=== PATIENT | female | born 1940 | race Caucasian/White ===

== ENCOUNTER 2021-02-07 14:33 | Inpatient (IN) | payer MEDICARE, MEDICAID ==
[~2021-02-07] VITALS: Ht 167.6 cm; Wt 71.2 kg
[~2021-02-07 14:33] MED LIST: ASPI-986 PO; ATOR10TA; ATOR10TA69 PO; CARB28DR; DIGO250T79 PO; LISI10TA26 PO; MONT10TA21 PO; POTA-9 PO; RIVA20TA PO
[2021-02-07] MEDS ORDERED: METHYLPREDNISOLONE SOD SUCC 125 MG/2 ML VIAL IV STA (15:00)
[2021-02-07 15:57] LABS: BASOPHILS % 0.6 % (0.0-2.0); EOSINOPHILS % 5.7 % (0.0-5.0); HEMATOCRIT. 38.3 % (36.0-48.0); HEMOGLOBIN. 12.8 g/dL (12.0-16.0); LYMPHOCYTES % 24.8 % (20.0-50.0); MEAN CORPUSCULAR HEMOGLOBIN 31.6 pg (28.0-32.0); MEAN CORPUSCULAR VOLUME 94.4 fL (81.0-99.0); MEAN PLATELET VOLUME 8.9 fl (7.4-10.4); MONOCYTES % 10.4 % (2.0-8.0); NEUTROPHILS % 58.5 % (40.0-76.0); PLATELET 124 x1000/uL (130-400); RED BLOOD CELL COUNT 4.06 mill/uL (4.2-5.4); RED CELL DISTRIBUTION WIDTH 13.9 % (11.6-14.6)
[2021-02-07 16:03] LABS: CHLORIDE 105 mEq/L (98-107)
[2021-02-07] MEDS ORDERED: FUROSEMIDE 40MG/4ML VIAL IVP NR (17:30)
[2021-02-07] MEDS ORDERED: CLONIDINE 0.1MG TABLET PO PRN (21:00)
[2021-02-07] MEDS: SPIRONOLACTONE 25MG TABLET PO SCH (21:00)
[2021-02-07] MEDS: FUROSEMIDE 40MG/4ML VIAL IVP SCH (21:00)
[2021-02-07] MEDS ORDERED: ACETAMINOPHEN 325MG TABLET PO PRN ×2 (21:00)
[2021-02-07] MEDS ORDERED: IPRATROPIUM/ALBUTEROL 0.5-3(2.5)MG/3ML NEB NEB PRN (21:00)
[2021-02-07] MEDS ORDERED: NITROGLYCERIN 0.4MG TABLET SL SL PRN (21:00)
[2021-02-07] MEDS ORDERED: KETOROLAC 15MG/ML VIAL IV PRN (21:00)
[2021-02-07] MEDS ORDERED: MAGNESIUM/ALUMINUM HYDROXIDE/SIMETHICONE 30ML UDC PO PRN (21:00)
[2021-02-07] MEDS ORDERED: ONDANSETRON HCL 4MG/2ML INJ IV PRN (21:00)
[2021-02-07] MEDS ORDERED: ZOLPIDEM TARTRATE 5MG TABLET PO PRN (21:00)
[2021-02-07] MEDS ORDERED: DOCUSATE SODIUM 100MG CAPSULE PO PRN (21:00)
[2021-02-07] MEDS ORDERED: GUAIFENESIN 200MG/10ML SUGAR FREE UDC PO PRN (21:00)
[2021-02-07] MEDS ORDERED: DIGOXIN 500MCG/2ML AMP IV NR (21:30)
[2021-02-07] MEDS ORDERED: TRAMADOL 50MG TABLET PO PRN (21:30)
[2021-02-07 21:49] LABS: DIGOXIN 0.4 ng/mL (0.9-2.0)
[2021-02-07 22:02] LABS: FERRITIN 103 ng/mL (10-291)
[2021-02-07 22:13] LABS: VITAMIN B12 SERUM 370 pg/mL (211-911)
[2021-02-07 22:26] LABS: FOLIC ACID (FOLATE) SERUM > 20.00 ng/mL (>5.38)
[2021-02-07 22:52] LABS: CREATINE KINASE 47 IU/L (26-192)
[2021-02-07 22:53] LABS: CREATINE KINASE MB FRACTION < 1.0 ng/mL (0.5-3.6)
[2021-02-08] MEDS: ASCORBIC ACID 500 MG TABLET PO SCH ×3 (01:21→22:34)
[2021-02-08] MEDS: FAMOTIDINE 20MG TABLET PO SCH ×3 (01:21→22:34)
[2021-02-08 05:02] LABS: HEMATOCRIT. 39.2 % (36.0-48.0); HEMOGLOBIN. 13.4 g/dL (12.0-16.0); MEAN CORPUSCULAR HEMOGLOBIN 31.7 pg (28.0-32.0); MEAN CORPUSCULAR VOLUME 92.9 fL (81.0-99.0); MEAN PLATELET VOLUME 9.3 fl (7.4-10.4); PLATELET 128 x1000/uL (130-400); RED BLOOD CELL COUNT 4.22 mill/uL (4.2-5.4)
[2021-02-08 05:09] LABS: CHLORIDE 100 mEq/L (98-107)
[2021-02-08 05:17] LABS: PHOSPHORUS 2.8 mg/dL (2.5-4.9)
[2021-02-08 05:19] LABS: CREATINE KINASE 51 IU/L (26-192)
[2021-02-08 05:22] LABS: CREATINE KINASE MB FRACTION < 1.0 ng/mL (0.5-3.6)
[2021-02-08 11:06] VITALS: BP 116/63
[2021-02-08 12:00] VITALS: BP 109/68
[2021-02-08] MEDS: SPIRONOLACTONE 25MG TABLET PO SCH ×2 (12:00→22:34)
[2021-02-08] MEDS ORDERED: FURO20TA4 MT (12:03)
[2021-02-08] MEDS ORDERED: DIGO125T80 PO (12:03)
[2021-02-08] MEDS ORDERED: METO-385 PO (12:07)
[2021-02-08] MEDS ORDERED: FLUT12AE7 INH ×2 (12:07→21:38)
[2021-02-08] MEDS: CHOLECALCIFEROL (D3) 1000 UNIT TABLET PO SCH (13:32)
[2021-02-08] MEDS: FUROSEMIDE 40MG/4ML VIAL IVP SCH ×2 (13:32→21:00)
[2021-02-08] MEDS: ASPIRIN 325MG EC TABLET PO SCH (13:33)
[2021-02-08] MEDS: ZINC SULFATE 220 MG ( 50 ) CAPSULE PO SCH (13:33)
[2021-02-08] MEDS ORDERED: NALOXONE HCL 0.4MG/ML VIAL IV PRN (15:30)
[2021-02-08 16:00] VITALS: BP 114/70
[2021-02-08] MEDS: DIGOXIN 125MCG TABLET PO SCH (17:19)
[2021-02-08] MEDS: RIVAROXABAN 15 MG TABLET PO SCH (17:20)
[2021-02-08 18:15] LABS: PLATELET ESTIMATE DECREASED
[2021-02-08 20:00] VITALS: BP 130/90
[2021-02-08] MEDS ORDERED: ALBU6.7H11 INH (21:38)
[2021-02-08] MEDS: ATORVASTATIN CALCIUM 10MG TABLET PO SCH (22:33)
[2021-02-09] VITALS: BP 121/50
[2021-02-09 04:00] VITALS: BP 107/53
[2021-02-09 08:00] VITALS: BP 122/49
[2021-02-09] MEDS: CHOLECALCIFEROL (D3) 1000 UNIT TABLET PO SCH ×2 (09:43→22:07)
[2021-02-09] MEDS: ASPIRIN 325MG EC TABLET PO SCH (09:43)
[2021-02-09] MEDS: ZINC SULFATE 220 MG ( 50 ) CAPSULE PO SCH (09:43)
[2021-02-09] MEDS: SPIRONOLACTONE 25MG TABLET PO SCH ×2 (09:43→22:02)
[2021-02-09] MEDS: FAMOTIDINE 20MG TABLET PO SCH ×2 (09:43→21:59)
[2021-02-09] MEDS: ASCORBIC ACID 500 MG TABLET PO SCH ×2 (09:43→22:16)
[2021-02-09 12:16] VITALS: BP 110/54
[2021-02-09] MEDS: METOPROLOL TARTRATE 25MG TABLET PO SCH ×2 (12:17→21:00)
[2021-02-09] MEDS: FUROSEMIDE 40MG/4ML VIAL IVP SCH ×2 (12:17→21:59)
[2021-02-09] MEDS ORDERED: DIGOXIN 500MCG/2ML AMP IV PRN (15:30)
[2021-02-09 16:00] VITALS: BP 104/62
[2021-02-09] MEDS: RIVAROXABAN 15 MG TABLET PO SCH (17:43)
[2021-02-09] MEDS: DIGOXIN 125MCG TABLET PO SCH (17:43)
[2021-02-09 20:00] VITALS: BP 93/62
[2021-02-09] MEDS: ATORVASTATIN CALCIUM 10MG TABLET PO SCH (22:02)
[2021-02-10] VITALS: BP_SYST 117; BP_DIAS 73; BP_DIAS 76
[2021-02-10 04:00] VITALS: BP_SYST 114; BP_SYST 124; BP_DIAS 62; BP_DIAS 72
[2021-02-10 08:00] VITALS: BP 120/59
[2021-02-10] MEDS ORDERED: ASPIRIN 81MG EC TABLET PO SCH (09:00)
[2021-02-10] MEDS: METOPROLOL TARTRATE 25MG TABLET PO SCH (09:00)
[2021-02-10] MEDS: SPIRONOLACTONE 25MG TABLET PO SCH (09:28)
[2021-02-10] MEDS: CHOLECALCIFEROL (D3) 1000 UNIT TABLET PO SCH (09:29)
[2021-02-10] MEDS: FAMOTIDINE 20MG TABLET PO SCH (09:29)
[2021-02-10] MEDS: ASCORBIC ACID 500 MG TABLET PO SCH (09:29)
[2021-02-10] MEDS: ZINC SULFATE 220 MG ( 50 ) CAPSULE PO SCH (09:29)
[2021-02-10] MEDS ORDERED: FUROSEMIDE 40MG TABLET PO SCH (10:30)
[2021-02-10 10:37] VITALS: BP 120/59
[2021-02-10 12:00] VITALS: BP 118/68
== END 2021-02-10 12:30 | disposition home or self-care (01) | DRG 291 ==
LOC: ER 14:33 → EDBEDREQ 20:53 → EDBEDREQTM 20:53 → SUPCPDRO 20:55 → MICUSO 22:15 → 7EST 02-08 08:24
PROVIDERS: ADMIT Internal Medicine; ATTEND Internal Medicine
DX: I11.0 Hypertensive heart disease with heart failure (principal); J96.01 Acute respiratory failure with hypoxia; I48.19 Other persistent atrial fibrillation; J44.1 Chronic obstructive pulmonary disease with (acute) exacerbation; I50.43 Acute on chronic combined systolic (congestive) and diastolic (congestive) heart failure; E83.51 Hypocalcemia; E78.00 Pure hypercholesterolemia, unspecified; E78.5 Hyperlipidemia, unspecified; Z20.822 Contact with and (suspected) exposure to COVID-19; Z79.51 Long term (current) use of inhaled steroids; Z91.14 Patient's other noncompliance with medication regimen; Z79.899 Other long term (current) drug therapy; Z79.01 Long term (current) use of anticoagulants
CPT/HCPCS: 36415; 71045; 80048; 80053; 80061; 80162; 82550; 82553; 82607; 82728; 82746; 83036; 83540; 83550; 83615; 83735; 83880; 84100; 84145; 84484; 85025; 85379; 87426; 93005; 93306; 93970; 97162; 97166; 99285; C1893; J1160; J1940; J2930